=== PATIENT | male | born 1985 | race Caucasian/White ===

== ENCOUNTER 2022-02-26 02:07 | Emergency (ER) | payer MEDICAID ==
[~2022-02-26] VITALS: Ht 165.1 cm; Wt 57.0 kg
[2022-02-26 02:35] LABS: COVID AG,FIA SOURCE NASAL SWAB
[2022-02-26 03:28] VITALS: BP 106/60
== END 2022-02-26 05:11 | disposition home or self-care (01) ==
LOC: EMS 02:11
DX: J02.8 Acute pharyngitis due to other specified organisms (principal); B97.89 Other viral agents as the cause of diseases classified elsewhere; F12.90 Cannabis use, unspecified, uncomplicated; Z20.822 Contact with and (suspected) exposure to COVID-19
CPT/HCPCS: 87430; 99283